=== PATIENT | male | born 1935 | race Two or more races ===

== ENCOUNTER 2021-07-23 22:46 | Emergency (ER) | payer BC, OTHER ==
[~2021-07-23] VITALS: Ht 172.7 cm; Wt 75.3 kg
[2021-07-23] MEDS ORDERED: LIDOCAINE 1%-EPI 1:100,000 20 ML VIAL ONE (22:57)
[2021-07-23] MEDS ORDERED: TDAP [DIPH/PERTUSSIS/TET] 0.5 ML VIAL IM ONE ×2 (23:00→23:07)
--- NOTE | 2021-07-23 23:00 | NUR ---
DAVONTE FROM [facility] C/O SLIP AND FALL. LAC NOTED UNDER L EYE . PT DEMENTED, WITH NON LABORED BREAHTING.
--- NOTE | 2021-07-23 23:11 | NUR ---
BROUGHT TO CT
--- NOTE | 2021-07-24 00:22 | NUR ---
Susan beck in [facility] - 07/24/21 at 0610 by [facility] CALLED FOR TRANSPORT TO [facility]. ETA 90 MINUTES
[2021-07-24 00:54] LABS: BASOPHILS % (AUTO) 0.7 % (0.0-2.0); EOSINOPHILS % (AUTO) 4.1 % (0.0-6.0); HEMATOCRIT 41 % (39-51); HEMOGLOBIN 13.9 g/dL (13.5-17.5); LYMPHOCYTES % (AUTO) 28.5 % (20.0-44.0); MEAN CORPUSCULAR HGB CONC 34 g/dl (31.0-36.0); MEAN CORPUSCULAR VOLUME 98 fL (80-96); MONOCYTES # (AUTO) 0.5 K/uL (0.1-1.30); MONOCYTES % (AUTO) 7.7 % (2.0-12.0); NEUTROPHILS # (AUTO) 4.1 K/uL (1.8-8.9); PLATELET COUNT (AUTO) 151 K/uL (150-450); RED BLOOD CELL COUNT(AUTO) 4.21 MIL/uL (4.5-6.0); WHITE BLOOD COUNT (AUTO) 6.9 K/uL (4.3-11.0)
[2021-07-24 01:16] LABS: ALANINE AMINOTRANSFERASE 22 U/L (12-78); ALBUMIN 3.5 g/dL (3.4-5.0); ALCOHOL, BLOOD < 3 mg/dL (0-0); ALKALINE PHOSPHATASE 126 U/L (46-116); ASPARTATE AMINOTRANSFERASE 15 U/L (15-37); BILIRUBIN,DIRECT 0.1 mg/dL (0.0-0.2); BILIRUBIN,TOTAL 0.4 mg/dL (0.2-1.0); CALCIUM, SERUM 7.9 mg/dL (8.5-10.1); CARBON DIOXIDE 30 mmol/L (21-32); CHLORIDE 106 mmol/L (98-107); CREATININE 1.4 mg/dL (0.6-1.3); GLUCOSE 107 mg/dL (74-106); POTASSIUM 4.3 mmol/L (3.5-5.1); SODIUM SERUM 141 mmol/L (136-145); TOTAL PROTEIN, SERUM 6.6 g/dL (6.4-8.2); UREA NITROGEN, BLOOD 24 mg/dL (7-18)
[2021-07-24 01:17] LABS: BILIRUBIN,URINE NEGATIVE (NEGATIVE); COLOR,URINE YELLOW (YELLOW); LEUKOCYTE ESTERASE ,URINE NEGATIVE (NEGATIVE); NITRITE, URINE NEGATIVE (NEGATIVE); PROTEIN,URINE NEGATIVE (NEGATIVE); UGLUCOSE NEGATIVE (NEGATIVE); UROBILINOGEN,URINE 0.2 EU/dL (0.2)
[2021-07-24 01:23] LABS: ACETAMINOPHEN < 2 ug/ml (10-30)
--- NOTE | 2021-07-24 08:02 | NUR ---
SON CALLED AND LEFT NUMBER. [phone]
--- NOTE | 2021-07-24 10:03 | NUR ---
spoke to marco antonio pérez cm and faxed patient medication list.
--- NOTE | 2021-07-24 11:06 | NUR ---
KEVIN TO [facility] WILL BE TRANSPORTED TO [facility] AT 1245.
--- NOTE | 2021-07-24 11:12 | NUR ---
spoke to Fanny (son) and informed about his father is going to [facility] and aware.
--- NOTE | 2021-07-24 11:15 | NUR ---
Patient Tranfers to outside Facility Physician:Dr. Valenzuela Location:[facility] [address] number for report [phone] [facility] ambulance ETA 1245.
[2021-07-24 11:48] VITALS: BP 137/78
--- NOTE | 2021-07-24 12:05 | NUR ---
Report given to Chayo PEARL
--- NOTE | 2021-07-24 12:48 | NUR ---
REPORT GIVEN TO [facility] AND PT IS BEING TRASNFERED.
== END 2021-07-24 12:50 ==
LOC: ER 22:48
DX: S01.112A Laceration without foreign body of left eyelid and periocular area, initial encounter (principal); S01.81XA Laceration without foreign body of other part of head, initial encounter; W19.XXXA Unspecified fall, initial encounter; Y92.129 Unspecified place in nursing home as the place of occurrence of the external cause; Z20.822 Contact with and (suspected) exposure to COVID-19; R45.1 Restlessness and agitation; F03.90 Unspecified dementia, unspecified severity, without behavioral disturbance, psychotic disturbance, mood disturbance, and anxiety; M25.78 Osteophyte, vertebrae; M48.02 Spinal stenosis, cervical region; S09.90XA Unspecified injury of head, initial encounter; R40.2362 Coma scale, best motor response, obeys commands, at arrival to emergency department; R40.2142 Coma scale, eyes open, spontaneous, at arrival to emergency department; R40.2242 Coma scale, best verbal response, confused conversation, at arrival to emergency department
CPT/HCPCS: 12013; 36415; 70450; 72125; 80048; 80076; 80143; 80307; 80320; 81003; 85025; 87426; 90471; 90715; 99285; J3490; C9803; G0480

== ENCOUNTER 2022-06-06 19:31 | Inpatient (IN) | payer BC ==
[~2022-06-06] VITALS: Ht 170.2 cm; Wt 69.9 kg
[~2022-06-06 19:31] MED LIST: ASPI-1169 PO; ATOR40TA PO; DONE5TAB34 PO; FLUT16SP16 BNOSTRILS; HYDR25TA4 PO; LOSA100T31 PO; MENT113O TD; NYST15CR TP
--- NOTE | 2022-06-06 19:40 | NUR ---
DAVONTE 86 FROM [facility] FOR C/O INCREASED WEAKNESS X TODAY. PATIENT HAS REDNESS ON HIS FOREHEAD AND SIDE OF THE HEAD. SAW HIM SCRATCHING. BUT NO REDNESS ON SOME PARTS OF THE BODY. PATIENT POSITINED COMFORTABLY IN BED. PATIENT IS AAOX2. ATTACHED TO MONITOR. VITALS CHECKED.
--- NOTE | 2022-06-06 19:56 | NUR ---
Fanny Norm (Son) Call for [employer]et [employer]
--- NOTE | 2022-06-06 19:59 | NUR ---
XRAY DONE AT BEDSIDE
[2022-06-06] MEDS ORDERED: diphenhydrAMINE HCL 50 MG/ML VIAL IV ONE (20:00)
[2022-06-06] MEDS ORDERED: IV NS 0.9% 1,000 ML BAG IV ONE (20:00)
--- NOTE | 2022-06-06 20:00 | NUR ---
IV CANNULA G18 INSERTED ON RIGHT AC. BLOOD DRAWN AND SENT TO LAB
[2022-06-06] MEDS ORDERED: diphenhydrAMINE HCL 50 MG/ML VIAL ONE (20:05)
[2022-06-06 20:23] LABS: BASOPHILS % (AUTO) 0.3 % (0.0-2.0); EOSINOPHILS % (AUTO) 2.2 % (0.0-6.0); HEMATOCRIT 39 % (39-51); LYMPHOCYTES # (AUTO) 1.3 K/uL (0.8-4.8); LYMPHOCYTES % (AUTO) 12.5 % (20.0-44.0); MEAN CORPUSCULAR HGB CONC 33 g/dl (31.0-36.0); MEAN CORPUSCULAR VOLUME 95 fL (80-96); MONOCYTES # (AUTO) 0.8 K/uL (0.1-1.30); MONOCYTES % (AUTO) 8.3 % (2.0-12.0); NEUTROPHILS # (AUTO) 7.8 K/uL (1.8-8.9); NEUTROPHILS % (AUTO) 76.7 % (43.0-81.0); PLATELET COUNT (AUTO) 164 K/uL (150-450); RED BLOOD CELL COUNT(AUTO) 4.15 MIL/uL (4.5-6.0); WHITE BLOOD COUNT (AUTO) 10.1 K/uL (4.3-11.0)
[2022-06-06 20:39] LABS: CARBON DIOXIDE 30 mmol/L (21-32); CHLORIDE 105 mmol/L (98-107); CREATININE 1.6 mg/dL (0.6-1.3); GLUCOSE 113 mg/dL (74-106); POTASSIUM 4.2 mmol/L (3.5-5.1); SODIUM SERUM 141 mmol/L (136-145); UREA NITROGEN, BLOOD 34 mg/dL (7-18)
--- NOTE | 2022-06-06 20:39 | NUR ---
URINE SPECIMEN SENT TO LAB
[2022-06-06 20:44] LABS: ALANINE AMINOTRANSFERASE 19 U/L (12-78); ALBUMIN 3.3 g/dL (3.4-5.0); ALKALINE PHOSPHATASE 117 U/L (46-116); ASPARTATE AMINOTRANSFERASE 16 U/L (15-37); BILIRUBIN,DIRECT 0.2 mg/dL (0.0-0.2); BILIRUBIN,TOTAL 0.9 mg/dL (0.2-1.0); TOTAL PROTEIN, SERUM 6.9 g/dL (6.4-8.2)
[2022-06-06 21:10] LABS: BILIRUBIN,URINE NEGATIVE (NEGATIVE); COLOR,URINE YELLOW (YELLOW); LEUKOCYTE ESTERASE ,URINE NEGATIVE (NEGATIVE); NITRITE, URINE NEGATIVE (NEGATIVE); PROTEIN,URINE NEGATIVE (NEGATIVE); UGLUCOSE NEGATIVE (NEGATIVE); UROBILINOGEN,URINE 0.2 EU/dL (0.2)
--- NOTE | 2022-06-06 22:39 | NUR ---
COVID SWAB DONE AND SENT TO LAB
--- NOTE | 2022-06-06 22:58 | NUR ---
IN AND OUT CATH DONE. WITH RESIDUAL OF [facility]. DR VILLANUEVA MADE AWARE
[2022-06-06] MEDS ORDERED: LIDOCAINE 2% JEL UROJET 10 ML MM ONE (23:00)
[2022-06-06] MEDS ORDERED: CLONIDINE HCL 0.1 MG TABLET PO ONE (23:00)
[2022-06-06] MEDS ORDERED: CLONIDINE HCL 0.1 MG TABLET ONE (23:10)
[2022-06-07] MEDS ORDERED: CYAN-51 PO (01:13)
[2022-06-07] MEDS ORDERED: CHOL500062 PO (01:13)
[2022-06-07] MEDS ORDERED: HYDR453.3 TP (01:13)
[2022-06-07] MEDS ORDERED: KETO15CR2 TP (01:13)
--- NOTE | 2022-06-07 02:12 | NUR ---
DR VILLANUEVA ON THE PHONE WITH DR SANCHES
[2022-06-07 05:32] LABS: BASOPHILS % (AUTO) 0.1 % (0.0-2.0); EOSINOPHILS % (AUTO) 0.3 % (0.0-6.0); HEMATOCRIT 35 % (39-51); HEMOGLOBIN 11.7 g/dL (13.5-17.5); LYMPHOCYTES % (AUTO) 10.5 % (20.0-44.0); MEAN CORPUSCULAR HGB CONC 33 g/dl (31.0-36.0); MEAN CORPUSCULAR VOLUME 96 fL (80-96); MONOCYTES # (AUTO) 0.7 K/uL (0.1-1.30); MONOCYTES % (AUTO) 6.9 % (2.0-12.0); NEUTROPHILS # (AUTO) 7.8 K/uL (1.8-8.9); NEUTROPHILS % (AUTO) 82.2 % (43.0-81.0); PLATELET COUNT (AUTO) 142 K/uL (150-450); RED BLOOD CELL COUNT(AUTO) 3.67 MIL/uL (4.5-6.0); WHITE BLOOD COUNT (AUTO) 9.5 K/uL (4.3-11.0)
[2022-06-07 05:46] LABS: CALCIUM, SERUM 8.3 mg/dL (8.5-10.1); CARBON DIOXIDE 29 mmol/L (21-32); CHLORIDE 107 mmol/L (98-107); CREATININE 1.5 mg/dL (0.6-1.3); GLUCOSE 119 mg/dL (74-106); POTASSIUM 4.2 mmol/L (3.5-5.1); SODIUM SERUM 141 mmol/L (136-145); UREA NITROGEN, BLOOD 30 mg/dL (7-18)
[2022-06-07 06:00] LABS: THYROID STIMULATING HORMONE 0.964 uIU/mL (0.358-3.74)
--- NOTE | 2022-06-07 07:36 | NUR ---
REPORT GIVEN TO DAE LANCASTER
[2022-06-07] MEDS ORDERED: diphenhydrAMINE HCL 25 MG CAPSULE PO PRN (08:30)
[2022-06-07] MEDS: HYDROCORTISONE 2.5% CREAM 28.4 GM TUBE TP SCH ×2 (09:00→17:00)
[2022-06-07] MEDS: KETOCONAZOLE 2% CREAM 15 GM TUBE TP SCH ×2 (09:00→17:00)
[2022-06-07] MEDS: ASPIRIN 81 MG TAB.CHEW PO SCH (09:00)
[2022-06-07] MEDS: predniSONE 20 MG TABLET PO SCH (09:00)
[2022-06-07] MEDS: DONEPEZIL 5 MG TABLET PO SCH (09:00)
[2022-06-07] MEDS ORDERED: AMLODIPINE BESYLATE 5 MG TABLET PO SCH (09:00)
--- NOTE | 2022-06-07 09:35 | NUR ---
SON IVAN CALLED AND LEFT CONTACT NUMBER [phone]
--- NOTE | 2022-06-07 13:15 | NUR ---
GOT BED 304-2
--- NOTE | 2022-06-07 14:43 | NUR ---
PT TRANSFERRED TO [facility] VIA GURNEY. WARM HANDOFF GIVEN TO RN ASSIGNED
--- NOTE | 2022-06-07 14:50 | NUR ---
ADMISSION RN NOTES ADMITTED A 87 Y/O MALE TO THE UNIT AT 1445 VIA GURNEY ACCOMPANIED BY Ivon NURSE WITH DX OF DEHYDRATION. PATIENT IS ALERT AND ORIENTED X1, CONFUSED. REORIENTED PT NEEDED. PT ORIENTED TO STAFF AND UNIT, REINFORCEMENT NEEDED. V/S TAKEN AND RECORDED. PT ON ROOM AIR, TOLERATING WELL WITH SPO2 AT 97%. NO SOB NOTED AT THIS TIME. NOT IN ANY SIGN OF RESPIRATORY DISTRESS. LUNG SOUNDS CLEAR BILATERALLY UPON AUSCULTATION. ABDOMEN SOFT AND NON-TENDER. PT DENIES PAIN OR DISCOMFORT AT THIS TIME. SKIN IS INTACT, DRY, AND WARM. PHOTOGRAPHS OF SKIN ISSUES TAKEN AND PLACED IN THE CHART. IV ACCESS IN LEFT WRIST G #22 INTACT AND PATENT. SAFETY MEASURES INITIATED: BED IN LOWEST AND LOCKED POSITION, BED ALARM ON, SIDE RAILS UP X2, AND CALL LIGHT WITHIN REACH. WILL CONTINUE TO MONITOR PT.
[2022-06-07] MEDS: IV 1/2NS 1000 ML 1,000 ML IV PRN (16:35)
[2022-06-07 16:45] VITALS: BP 146/75
--- NOTE | 2022-06-07 19:30 | NUR ---
MS RN OPENING NOTE RECEIVED REPORT FROM MICHELE FOR [facility]. PT AWAKE, RESTING IN BED. P IS ALERT AND ORIENTED X1, CONFUSED. PT SHOWING SIGNS OF AGITATION. CURRENTLY ON ROOM AIR, TOLERATING WELL. NO SOB, NO PAIN. NO S/SX OF RESPIRATORY DISTRESS NOTED AT THIS TIME. PT NO IV ACCESS SINCE HE JUST PULLED IT OUT. WILL REINSERT A NEW ONE KELLY. ALL SAFETY MEASURES IN PLACE: BED IN LOWEST AND LOCKED POSITION, BED ALARM ON, SIDE RAILS UP X3, AND CALL LIGHT WITHIN REACH. SITTER ON THE BEDSIDE. WILL CONTINUE TO MONITOR.
[2022-06-07 20:00] VITALS: BP 159/55
--- NOTE | 2022-06-07 20:01 | NUR ---
MS RN CLOSING NOTES PT AWAKE, RESTING IN BED. PATIENT IS ALERT AND ORIENTED X1, CONFUSED. REORIENTED PT NEEDED. PT ON ROOM AIR, TOLERATING WELL. NO SOB NOTED. NOT IN ANY SIGN OF RESPIRATORY DISTRESS. PT PULLED OUT HIS IV ACCES IN LEFT WRIST AND TRIES TO GET UP OUT OF. PT IS UNSTEADY WHEN AMBULATING AT THIS TIME. ENDORSED TO COSMETIC SALES ADVISOR NURSE AND MADE DAY SHIFT AND COSMETIC SALES ADVISOR CHARGED NURSE AWARE DURING CHANGE OF SHIFT. CHARGE NURSES PLACED MACARIO, PRODUCT MANAGER E [employer] SITTER AT THIS TIME AND THEY WILL TRY TO REINSERT IV. ALL NEEDS ATTENDED. KEPT CLEAN AND COMFORTABLE. SAFETY MEASURES INITIATED: BED IN LOWEST AND LOCKED POSITION, BED ALARM ON, SIDE RAILS UP X2, AND CALL LIGHT WITHIN REACH. ENDORSED TO COSMETIC SALES ADVISOR NURSE FOR LESLIE.
--- NOTE | 2022-06-07 20:15 | NUR ---
RN NOTE NEW IV LINE NOTED AT [facility], #22g, CURRENTLY INFUSING 1/2 NS @ 100 CC/HR.
--- NOTE | 2022-06-07 21:09 | NUR ---
RN NOTE PT NOTED TO HAVE O2 SAT AT 90% OR LOWER. PT IS RESTLESS AND CONFUSED UPON FURTHER ASSESSMENT. PUT PT ON O2 VIA NC AT 2L. INSTANTLY, PT O2 SAT WENT UP TO 93-94%. WILL CONTINUE TO MONITOR PT CLOSELY. SITTER ON BEDSIDE.
[2022-06-07] MEDS ORDERED: ATORVASTATIN 40 MG TABLET PO SCH (22:00)
[2022-06-07] MEDS ORDERED: OLANZAPINE 10 MG VIAL IM PRN (22:00)
--- NOTE | 2022-06-07 22:30 | NUR ---
RN NOTE PT IS AGITATED, RESTLESS AND TRIES TO PULL OUT HIS IV AND GET OFF BED. GIVEN ZYPREXA ORDERED TO KEEP PT SAFE AND CALM. SITTER ON BEDSIDE. WILL CONTINUE TO MONITOR AND REASSESS FOR ANY CHANGES.
[2022-06-08] MEDS: IV 1/2NS 1000 ML 1,000 ML IV PRN (04:30)
[2022-06-08 05:46] LABS: BASOPHILS % (AUTO) 0.2 % (0.0-2.0); HEMATOCRIT 36 % (39-51); HEMOGLOBIN 12.3 g/dL (13.5-17.5); LYMPHOCYTES # (AUTO) 1.2 K/uL (0.8-4.8); LYMPHOCYTES % (AUTO) 13.7 % (20.0-44.0); MEAN CORPUSCULAR HGB CONC 34 g/dl (31.0-36.0); MEAN CORPUSCULAR VOLUME 94 fL (80-96); MONOCYTES # (AUTO) 0.9 K/uL (0.1-1.30); NEUTROPHILS # (AUTO) 6.6 K/uL (1.8-8.9); NEUTROPHILS % (AUTO) 74.1 % (43.0-81.0); PLATELET COUNT (AUTO) 139 K/uL (150-450); RED BLOOD CELL COUNT(AUTO) 3.88 MIL/uL (4.5-6.0); WHITE BLOOD COUNT (AUTO) 8.9 K/uL (4.3-11.0)
[2022-06-08 05:59] LABS: CALCIUM, SERUM 8.7 mg/dL (8.5-10.1); CREATININE 1.3 mg/dL (0.6-1.3); POTASSIUM 3.9 mmol/L (3.5-5.1)
--- NOTE | 2022-06-08 06:16 | NUR ---
RN CLOSING NOTE PT REMAINS CONFUSED BUT LESS AGITATED THIS MORNING. ONE ON ONE MONITORING STILL NECESSARY FOR PT'S SAFETY - SITTER ON BEDSIDE. ON RA, TOLERATING WELL. PT CANNOT KEEP NC ON. BUT IS TOLERATING WELL. NO SOB. BREATHING IS EVEN AND UNLABORED. NO S/SX OF ACUTE RESPIRATORY DISTRESS NOTED. DUE MED GIVEN. NEEDS ATTENDED TO. WILL ENDORSE TO AM SHIFT NURSE FOR LESLIE.
[2022-06-08 06:22] LABS: THYROID STIMULATING HORMONE 2.063 uIU/mL (0.358-3.74)
--- NOTE | 2022-06-08 07:23 | NUR ---
RN OPENING NOTES RECEIVED PATIENT ASLEEP IN BED. SITTER AT BEDSIDE. NO SIGNS OF ACUTE DISTRESS NOTED. ON ROOM AIR, NO SOB NOTED, BREATHING EVEN AND UNLABORED. NOTED WITH IV ACCESS ON LEFT ANTECUBITAL #20G, INTACT AND PATENT WITH 1/2 NS @100 ML/HR RUNNING. SAFETY MEASURE IN PLACE. BED IN LOWEST AND LOCKED POSITION, SIDE RAILS UP, CALL LIGHT PLACED WITHIN EASY REACH. WILL CONTINUE TO MONITOR PATIENT.
[2022-06-08] MEDS ORDERED: PRED20TA PO (08:36)
[2022-06-08] MEDS: DONEPEZIL 5 MG TABLET PO SCH (08:51)
[2022-06-08] MEDS: ASPIRIN 81 MG TAB.CHEW PO SCH (08:51)
[2022-06-08 08:52] VITALS: BP 116/62
[2022-06-08] MEDS: KETOCONAZOLE 2% CREAM 15 GM TUBE TP SCH (08:52)
[2022-06-08] MEDS: HYDROCORTISONE 2.5% CREAM 28.4 GM TUBE TP SCH (08:52)
[2022-06-08] MEDS: predniSONE 20 MG TABLET PO SCH (08:52)
[2022-06-08] MEDS ORDERED: LOSARTAN POTASSIUM 50 MG TABLET PO SCH (09:00)
[2022-06-08] MEDS ORDERED: CYANOCOBALAMIN 500 MCG TABLET PO SCH (09:00)
[2022-06-08] MEDS ORDERED: CHOLECALCIFEROL 1,000 UNIT TABLET (VIT D3) PO SCH (09:00)
--- NOTE | 2022-06-08 13:34 | NUR ---
12:50 06/08/22 PT'S POWER OF TRAINING GENERALIST CANCELLED THE EXAM DUE TO SAME EXAM WAS DONE ON 06/07/22. CHARGE NURSE WAS INFORMED
--- NOTE | 2022-06-08 14:25 | NUR ---
ORACLE SQL DEVELOPER NOTE PATIENT DISCHARGED TO [facility] IN STABLE CONDITION. PATIENT AWAKE, A/O X1-2, VERBALLY RESPONSIVE. NO SIGNS OF ACUTE DISTRESS NOTED. PHOTOS OF SKIN ISSUES NOT TAKEN, PT GETS AGITATED. IV ACCESS REMOVED, NO BLEEDING NOTED. ARM NAME BAND REMOVED. ALL BELONGINGS ACCOUNTED FOR. FORM SIGNED BY PATIENT'S SON IVAN. DISCHARGE INSTRUCTIONS PROVIDED TO SON WITH VERBALIZATION OF UNDERSTANDING. REPORT GIVEN TO DAE AMAYA FROM [facility]. EXITCARE FOLDER GIVEN TO SON. EKTA ANGUIANO ACCOMPANIED PATIENT TO THE LOBBY VIA W/C, SON PICKED UP PT VIA PRIVATE CAR. LEFT UNIT @1420. CN AWARE OF DISCHARGE.
== END 2022-06-08 14:25 | DRG 922 ==
LOC: ER 19:41 → TRANSITION 06-07 09:59 → MED 06-07 13:23
PROVIDERS: ADMIT Internal Medicine; ATTEND Internal Medicine
DX: T78.1XXA Other adverse food reactions, not elsewhere classified, initial encounter (principal); N17.0 Acute kidney failure with tubular necrosis; X58.XXXA Exposure to other specified factors, initial encounter; E86.0 Dehydration; N18.9 Chronic kidney disease, unspecified; Z20.822 Contact with and (suspected) exposure to COVID-19; I25.10 Atherosclerotic heart disease of native coronary artery without angina pectoris; F03.90 Unspecified dementia, unspecified severity, without behavioral disturbance, psychotic disturbance, mood disturbance, and anxiety; Z95.1 Presence of aortocoronary bypass graft; Z96.641 Presence of right artificial hip joint; Z79.899 Other long term (current) drug therapy; E78.5 Hyperlipidemia, unspecified; Z79.82 Long term (current) use of aspirin; I12.9 Hypertensive chronic kidney disease with stage 1 through stage 4 chronic kidney disease, or unspecified chronic kidney disease; R21 Rash and other nonspecific skin eruption
CPT/HCPCS: 36415; 71045-TC; 76770-TC; 80048-TC; 80076-TC; 83605-TC; 84443-TC; 84484-TC; 85025-TC; 85730-TC; 87040-TC; 87081-TC; 87086-TC; 97116-TC; 97530-TC; C9803; G0378; J1200; J3490; J7030

== ENCOUNTER 2023-01-09 14:54 | Emergency (ER) | payer BC ==
[~2023-01-09] VITALS: Ht 165.1 cm; Wt 69.9 kg
[~2023-01-09 14:54] MED LIST changes: +CHOL500062 PO; +CYAN-51 PO; +HYDR453.3 TP; +KETO15CR2 TP; -MENT113O TD; +PRED20TA PO
[2023-01-09] MEDS ORDERED: IV NS 0.9% 1,000 ML BAG IV ONE ×2 (15:00→16:30)
--- NOTE | 2023-01-09 15:00 | NUR ---
[id number] FROM [facility] FOR LOW BLOOD PRESSURE 80/58 ON SCENE. PLACED IN BED, AAOX3, BREATHING EVEN AND UNLABORED SATURATING AT 96%RA
--- NOTE | 2023-01-09 15:19 | NUR ---
BLOOD DRAWN AND SENT TO LAB
[2023-01-09 15:36] LABS: BASOPHILS % (AUTO) 0.4 % (0.0-2.0); EOSINOPHILS % (AUTO) 2.8 % (0.0-6.0); HEMATOCRIT 38 % (39-51); HEMOGLOBIN 12.4 g/dL (13.5-17.5); LYMPHOCYTES % (AUTO) 24.6 % (20.0-44.0); MEAN CORPUSCULAR HGB CONC 33 g/dl (31.0-36.0); MEAN CORPUSCULAR VOLUME 96 fL (80-96); MONOCYTES # (AUTO) 0.3 K/uL (0.1-1.30); NEUTROPHILS # (AUTO) 2.7 K/uL (1.8-8.9); NEUTROPHILS % (AUTO) 64.2 % (43.0-81.0); PLATELET COUNT (AUTO) 172 K/uL (150-450); RED BLOOD CELL COUNT(AUTO) 3.91 MIL/uL (4.5-6.0); WHITE BLOOD COUNT (AUTO) 4.2 K/uL (4.3-11.0)
[2023-01-09 15:46] LABS: CALCIUM, SERUM 8.5 mg/dL (8.5-10.1); CARBON DIOXIDE 27 mmol/L (21-32); CHLORIDE 107 mmol/L (98-107); CREATININE 1.8 mg/dL (0.6-1.3); GLUCOSE 127 mg/dL (74-106); POTASSIUM 4.2 mmol/L (3.5-5.1); SODIUM SERUM 144 mmol/L (136-145); UREA NITROGEN, BLOOD 34 mg/dL (7-18)
--- NOTE | 2023-01-09 15:50 | NUR ---
SWAB FOR COVID19 SENT TO LAB
[2023-01-09 15:52] LABS: ALANINE AMINOTRANSFERASE 27 U/L (12-78); ALKALINE PHOSPHATASE 100 U/L (46-116); ASPARTATE AMINOTRANSFERASE 18 U/L (15-37); BILIRUBIN,DIRECT 0.1 mg/dL (0.0-0.2); BILIRUBIN,TOTAL 0.4 mg/dL (0.2-1.0); TOTAL PROTEIN, SERUM 5.9 g/dL (6.4-8.2)
[2023-01-09 15:59] LABS: THYROID STIMULATING HORMONE 3.115 uIU/mL (0.358-3.74)
--- NOTE | 2023-01-09 16:01 | NUR ---
URINE SAMPLE SENT TO LAB
[2023-01-09 16:14] LABS: BILIRUBIN,URINE NEGATIVE (NEGATIVE); COLOR,URINE YELLOW (YELLOW); LEUKOCYTE ESTERASE ,URINE NEGATIVE (NEGATIVE); NITRITE, URINE NEGATIVE (NEGATIVE); PH,URINE 6.5 (5.0-8.0); PROTEIN,URINE NEGATIVE (NEGATIVE); UGLUCOSE NEGATIVE (NEGATIVE); UROBILINOGEN,URINE 0.2 EU/dL (0.2)
[2023-01-09] MEDS ORDERED: PIPERACILLIN /TAZOBACTAM 3.375 G in IV D5W 50 ML IV ONE (16:30)
[2023-01-09] MEDS ORDERED: PIPERACI/TAZO 3.375GM/D5W 50ML PB IV ONE (16:34)
--- NOTE | 2023-01-09 16:41 | NUR ---
MOVE SHEET SUBMITTED.
--- NOTE | 2023-01-09 19:00 | NUR ---
ELLEN ALVES FROM [facility] WILL SEE ABOUT TRANSFERRING PT.
--- NOTE | 2023-01-09 19:06 | NUR ---
ELLEN CALLED PLANNING ON GOING TO [facility]. AWAITING PEER TO PEER.
--- NOTE | 2023-01-09 20:33 | NUR ---
[facility] ACCEPTED PT AT [place], CONNECTING DR. CASSI MARINO DR. FROM [place].
--- NOTE | 2023-01-09 20:37 | NUR ---
DR YE ON THE PHONE WITH AT [facility]
--- NOTE | 2023-01-09 23:26 | NUR ---
ER TO ER NORBERTO CANAS # FOR REPORT: [phone]
--- NOTE | 2023-01-09 23:39 | NUR ---
REPORT GIVEN TO DAE MEDEL [facility]
[2023-01-09 23:47] VITALS: BP 126/88
== END 2023-01-09 23:48 | disposition hospice, inpatient (51) ==
LOC: ER 14:57
DX: R55 Syncope and collapse (principal); I95.9 Hypotension, unspecified; E87.20 Acidosis, unspecified; I45.10 Unspecified right bundle-branch block; I10 Essential (primary) hypertension; Z20.822 Contact with and (suspected) exposure to COVID-19; Z79.899 Other long term (current) drug therapy
CPT/HCPCS: 99285; 96365; 70450; 71045; 96361; 87426; 93005 ×2; 85025; 80048; 87040 ×2; 83605 ×2; 80076; 81003; 36415; 84443; 84484; 85730; J2543; J7030 ×2; C9803; J7060